=== PATIENT | female | born 1945 | race Asian ===

== ENCOUNTER 2024-02-28 20:52 | Emergency (ER) | payer MEDICARE, SELFPAY ==
[2024-02-28 20:56] VITALS: BP 170/80; PULSE 58; O2SAT 96
[2024-02-28 20:59] VITALS: BP 195/72; PULSE 83; RESP 19; TEMP 36.8; O2SAT 99; BMI 42.6
--- NOTE | 2024-02-28 21:00 | ED_ITS ---
HPI - General Adult General Chief complaint: General Medical Stated complaint: took insulin prior to meal, bgl 35, now bgl 193 Time Seen by Provider: 02/28/24 20:59 Source: patient and family Mode of arrival: EMS Limitations: no limitations History of Present Illness HPI narrative: 78-year-old female with a history of hypertension diabetes mellitus, hyperlipidemia who presents emergency department for evaluation of altered mental status secondary to a glucose of 33. The in [place] in his visiting family in this area. He states that she takes Humalog twice a day. She states that she was at dinner with her family and took her Humalog 35 units subcutaneously. That her meal was delivered proximally 25 minutes after taking the insulin. She states that she knew that her blood sugar was getting low. She began eating but then became unresponsive. Point of care glucose was 33. She was given a bolus of D10 IV which reversed her altered mental status. Here in the emergency department she is awake and alert and able answer questions without any difficulty. Her point of care glucose was 96. The patient denies being ill. She states that her schedule his off and she is on [facility] time but otherwise she has been feeling well and taking her medications as prescribed. Related Data Allergies Allergy/AdvReac Type Severity Reaction Status Date / Time ampicillin Allergy Anaphylaxis Verified 02/28/24 21:04 cefazolin [From Ancef] Allergy Anaphylaxis Verified 02/28/24 21:04 methimazole [From Tapazole] Allergy Anaphylaxis Verified 02/28/24 21:04 Sulfa (Sulfonamide Allergy Anaphylaxis Verified 02/28/24 21:04 Antibiotics) Review of Systems 2 Review of Systems: Yes all other systems are reviewed and are negative [facility] Past Medical History [facility] Narrative: Social history: She lives in [facility], she denies tobacco, alcohol and drug use. Social History Social History Smoked in Last 30 Days: No Use of substances other than those prescribed or required for medical reasons: No Advance Directives: No Advance Directives Information Provided: Yes Physical Exam ED Vital Signs: Vital Signs - 24 hr 02/28/24 20:59 02/28/24 21:03 Temperature 98.2 F 97.6 F Pulse Rate 83 80 Respiratory Rate 19 18 Blood Pressure 195/72 H 195/72 H Pulse Oximetry 99 98 Oxygen Delivery Method Room Air Room Air BMI result Body Mass Index 42.6 Vital signs did reveal an elevated blood pressure of 195/72 otherwise unremarkable Exam: General: Awake, alert in no distress, weight 109 kg, elevated BMI 42.6. Head: Normocephalic, atraumatic EENT: PERRL, Lids normal, sclera normal, conjunctiva normal, nose normal , ears normal, throat without erythema or exudates Neck: Supple, no adenopathy Lung: breath sounds symmetric, no wheezing, rales or rhonchi Chest: symmetric movement, nontender Heart: regular rate and rhythm, normal S1, S2 no murmurs or rubs Abdomen: soft, non-tender, nondistended, normal bowel sounds Back: no vertebral tenderness, no CVAT Extremities: no deformities, moves all extremities symmetrically Neuro: Awake, alert, oriented, normal speech, cranial nerves intact, moves all extremities symmetrically Psych: Pleasant, cooperative Medical Decision Making Medical Decision Making MDM Narrative: 78-year-old female with a history of diabetes mellitus, hypertension, hyperlipidemia, who was from [place], visiting her family in this area who presents for evaluation of altered mental status secondary to hypoglycemia. The patient took Humalog 35 units subcutaneously while she was at a restaurant waiting for her food. The food arrived 25 minutes later but the patient became hypoglycemic while she was eating. Patient did respond to D10 bolus given by paramedics. She denied being ill prior to her episode of hypoglycemia. Vital signs did reveal an elevated blood pressure. Examination was unremarkable. Differential diagnosis: ?Includes but is not limited to hypoglycemia, renal failure, electrolyte abnormalities, anemia, inadequate food intake Following evaluation was ordered: CBC, CMP, urinalysis, point of care glucose Patient was initially treated with the following: Patient was given food to eat here in the emergency department Course: Lab Data 02/28/24 22:00 02/28/24 22:00 Labs: Lab Results 02/28/24 02/28/24 02/28/24 Range/Units 21:03 22:00 22:22 WBC 7.0 (4.8-10.8) X10*3/uL RBC 4.51 (4.20-5.50) X10*6/uL Hgb 13.5 (12.0-16.0) g/dl Hct 41.5 (37.0-47.0) % MCV 92.0 (80.0-98.0) fL MCH 29.9 (27.0-33.0) pg MCHC 32.5 (31.0-35.0) g/dl RDW 13.7 (11.0-16.0) % Plt Count 148 L (160-400) X10*3/uL MPV 9.3 L (9.4-12.3) fL Immature Gran % (Auto) 0.6 H (0.0-0.4) % Neut % (Auto) 68.1 (45-73) % Lymph % (Auto) 21.7 (20-40) % [place] % (Auto) 6.3 (2-11) % Eos % (Auto) 2.9 (0-4) % Baso % (Auto) 0.4 (0-2) % Lymph # (Auto) 1.5 (1.2-4.9) X10*3/uL [place] # (Auto) 0.4 (0.1-1.2) X10*3/uL Eos # (Auto) 0.2 (0.0-0.4) X10*3/uL Baso # (Auto) 0.0 (0.0-0.2) X10*3/uL Abs Immat Gran (auto) 0.04 H (0.00-0.03) X10*3/uL Absolute Neuts (auto) 4.7 (2.0-8.3) x10*3/uL Absolute Nucleated RBC 0.000 (0.0-0.012) X10*3/uL Nucleated RBC % (auto) 0.0 (0.0-0.2) /100WBC Sodium 145 (135-145) mmol/L Potassium 5.1 (3.3-5.1) mmol/L Chloride 113 H (96-108) mmol/L Carbon Dioxide 23 (22-29) mmol/L Anion Gap 14 (12-20) BUN 20 H (9-16) mg/dL Creatinine 1.45 H (0.5-1.4) mg/dL Estim Creat Clear Calc 38.4 Estimated GFR 35 POC Glucose 96 105 (60-115) mg/dL Random Glucose 104 (60-115) mg/dL Calcium 10.0 (8.4-10.2) mg/dL Total Bilirubin 0.5 (0.0-1.0) mg/dL AST 60 H (5-31) U/L ALT 28 (0-31) U/L Alkaline Phosphatase 216 H (39-117) U/L Total Protein 7.7 (6.5-8.0) g/dL Albumin 3.9 (3.5-5.0) g/dL Urine Color Yellow Urine Appearance Clear Urine pH 5.5 (5.0-9.0) Ur Specific [place] 1.015 (1.005-1.025) Urine Protein 100 (2+) H (Neg-Trace) mg/dL Urine Glucose (UA) Negative (Negative) mg/dL Urine Ketones Negative (Negative) mg/dL Urine Blood Negative (Negative) Urine Nitrite Negative (Negative) Ur Leukocyte Esterase Trace H (Negative) Urine RBC 0-2 (0-2) /HPF Urine WBC 6-10 H (0-5) /HPF Ur Squamous Epith Cells 3-5 (0-2) /HPF Urine Bacteria None Seen (None Seen) Hyaline Casts 0-2 (0-2) /LPF Discharge Plan Discharge Clinical Impression: Hypoglycemia Patient Disposition: Home, Self-Care Additional Instructions: Your low sugar today was secondary accidentally taking your insulin too soon before you ate food. Sometimes after you have a low sugar, you are prone to having repeat low sugars. When you get home eat more food. Make sure you increase the amount of food that you eat throughout the day. I want you to check your blood sugar before breakfast and before dinner tomorrow. If your morning blood sugar is between 60 and 100 then give yourself 20 units of Humalog If your morning blood sugar is greater than 100 then give yourself 30 units of Humalog. If your before dinner blood sugar is between 60 and 100 then take 30 units of Humalog If your before dinner blood sugar is greater than 100 then you can take your normal 40 units of Humalog You should allow your sugar to be higher throughout the day and then you can go back to taking your normal dose of Humalog. Continue taking your other medications as prescribed by your providers. Please return to the emergency department if your symptoms get worse or if you develop any symptoms that are concerning to you. Print Language: Yakut
[2024-02-28 21:03] VITALS: BP 195/72; PULSE 80; RESP 18; TEMP 36.4; O2SAT 98
[2024-02-28 21:09] LABS: Glucose, Whole Blood 96 mg/dL (60-115)
[2024-02-28 22:06] LABS: MANUAL DIFF FLAG NO
[2024-02-28 22:08] LABS: Basophils Percent Auto 0.4 % (0-2); Eosinophils Absolute Auto 0.2 X10*3/uL (0.0-0.4); Eosinophils Percent Auto 2.9 % (0-4); Hematocrit 41.5 % (37.0-47.0); Hemoglobin 13.5 g/dl (12.0-16.0); Imm Gran Abs Auto 0.04 X10*3/uL (0.00-0.03); Imm Gran Pct Auto 0.6 % (0.0-0.4); Lymphocytes Absolute Auto 1.5 X10*3/uL (1.2-4.9); Lymphocytes Percent Auto 21.7 % (20-40); Mean Corpuscular HGB Conc 32.5 g/dl (31.0-35.0); Mean Corpuscular Hemoglobin 29.9 pg (27.0-33.0); Mean Platelet Volume 9.3 fL (9.4-12.3); Monocytes Absolute Auto 0.4 X10*3/uL (0.1-1.2); Monocytes Percent Auto 6.3 % (2-11); Neutrophils Absolute Auto 4.7 x10*3/uL (2.0-8.3); Neutrophils Percent Auto 68.1 % (45-73); Platelet Count 148 X10*3/uL (160-400); Red Blood Count 4.51 X10*6/uL (4.20-5.50); Red Cell Distribution Width 13.7 % (11.0-16.0)
[2024-02-28 22:20] LABS: Appearance Urine Clear; Color Urine Yellow; Glucose Urine UA Negative (Negative); Leukocyte Esterase Urine Trace (Negative); Nitrite Urine Negative (Negative); PH 5.5 (5.0-9.0); Specific Gravity - Urine 1.015 (1.005-1.025); UMIC TRIGGER UACC YES; Urine Blood Negative (Negative); Urine Ketones Negative (Negative); Urine Protein 100 (2+) mg/dL (Neg-Trace)
[2024-02-28 22:21] LABS: Alanine Aminotransferase 28 U/L (0-31); Albumin Level 3.9 g/dL (3.5-5.0); Alkaline Phosphatase 216 U/L (39-117); Anion Gap 14 (12-20); Aspartate Amino Transferase 60 U/L (5-31); Bilirubin Total 0.5 mg/dL (0.0-1.0); Blood Urea Nitrogen 20 mg/dL (9-16); Carbon Dioxide 23 mmol/L (22-29); Chloride 113 mmol/L (96-108); Creatinine Clr Calc Pharmacy 38.4; Estimated Glomerular Filt Rate 35; Glucose Random 104 mg/dL (60-115); Potassium 5.1 mmol/L (3.3-5.1); Sodium 145 mmol/L (135-145); Total Protein 7.7 g/dL (6.5-8.0)
[2024-02-28 22:26] LABS: Glucose, Whole Blood 105 mg/dL (60-115)
[2024-02-28 22:30] LABS: Bacteria Urine None Seen (None Seen); Hyaline Casts Urine 0-2 /LPF (0-2); RBC Urine 0-2 /HPF (0-2); UACC Culture Trigger YES
[2024-02-28 23:11] VITALS: BP 178/73; PULSE 75; RESP 16; TEMP 36.8; O2SAT 97
== END 2024-02-28 23:12 | disposition home or self-care (01) ==
PROVIDERS: Emergency Provider Emergency Medicine Emergency Medical Services
DX: E11.649 Type 2 diabetes mellitus with hypoglycemia without coma (principal); I10 Essential (primary) hypertension; Z79.4 Long term (current) use of insulin
CPT/HCPCS: 36415; 80053; 81001; 82947; 85025; 87086; 99283; 99284